=== PATIENT | female | born 1990 | race Caucasian/White ===

== ENCOUNTER 2018-10-28 10:17 | Emergency (ER) | payer BC, OTHER ==
[2018-10-28] MEDS ORDERED: Ibuprofen TAB* 600 MG PO ONE (10:32)
--- NOTE | 2018-10-28 12:01 | ED ---
Upper Extremity Pain - HPI Summary HPI Summary: Patient is a 27-year-old female presenting to the ED with a crush injury to the right ring finger at work this morning. She states the ring finger got jammed in between a person and a bed. She is endorsing pain to the PIP joint only without radiation of pain. Denies any numbness or tingling. Denies any color or temperature changes. She is able to flex and extend the MCP, but refuses to flex and extend at the PIP or DIP due to pain. She's never injured the hand or the finger in the past. Symptoms are aggravated with movement and better with rest. She has not taken anything [id number] for relief and has not used ice for relief. - History of Current Complaint Chief Complaint: EDExtremityUpper Stated Complaint: LEFT HAND INJURY Time Seen by Provider: 10/28/18 10:27 Hx Obtained From: Patient Onset/Duration: Started Hours Ago Timing: Constant Severity Initially: Moderate Severity Currently: Moderate Pain Location: Finger Character: Aching Aggravating Factor(s): Movement, Lifting, Flexion, Extension Alleviating Factor(s): Rest, Ice Associated Signs & Symptoms: Negative: Swelling, Redness, Bruising Related History: Dominant Hand Right - Risk Factors Non-Orthopedic Risk Factor: Negative DVT Risk Factors: Negative Septic Arthritis Risk Factor: Negative Compartment Syndrome Risk Factors: Pain - Allergies/Home Medications Allergies/Adverse Reactions: Allergies Allergy/AdvReac Type Severity Reaction Status Date / Time No Known Allergies Allergy Verified 10/28/18 10:24 PMH/Surg Hx/FS Hx/Imm Hx Previously Healthy: Yes - Immunization History Hx Pertussis Vaccination: No Immunizations Up to Date: Yes Infectious Disease History: No Infectious Disease History: Denies: Traveled Outside the [place] in Last 30 Days - Social History Alcohol Use: Occasionally Hx Substance Use: No Substance Use Type: Reports: None Hx Tobacco Use: Yes Smoking Status (MU): Heavy Every Day Tobacco Smoker Review of Systems Constitutional: Negative Eyes: Negative Cardiovascular: Negative Respiratory: Negative Genitourinary: Negative Positive: no symptoms reported, see HPI Positive: Arthralgia - right ring finger injury Neurological: Negative All Other Systems Reviewed And Are Negative: Yes Physical Exam Triage Information Reviewed: Yes Vital Signs On Initial Exam: Initial Vitals Temp Pulse Resp BP Pulse Ox 98.2 F 98 17 153/89 99 10/28/18 10:22 10/28/18 10:22 10/28/18 10:22 10/28/18 10:22 10/28/18 10:22 Vital Signs Reviewed: Yes Appearance: Positive: Well-Appearing, Well-Nourished Skin: Positive: Warm, Skin Color Reflects Adequate Perfusion Head/Face: Positive: Normal Head/Face Inspection Eyes: Positive: Conjunctiva Clear Neck: Positive: Supple, Nontender, No Lymphadenopathy Respiratory/Lung Sounds: Positive: Clear to Auscultation, Breath Sounds Present Cardiovascular: Positive: RRR, Pulses are Symmetrical in both Upper and Lower Extremities Musculoskeletal: Positive: Pain @ - right ring finger Neurological: Positive: Alert, Oriented to Person Place, Time, Speech Normal Psychiatric: Positive: Normal, Affect/Mood Appropriate AVPU Assessment: Alert Diagnostics - Vital Signs Vital Signs Temp Pulse Resp BP Pulse Ox 10/28/18 10:22 98.2 F 98 17 153/89 99 - Laboratory Lab Statement: Any lab studies that have been ordered have been reviewed, and results considered in the medical decision making process. Course/Dx - Course Course Of Treatment: X-ray obtained which shows a questionable crush injury at the volar plate at the distal phalanx of the left ring finger. Splint applied. She will keep splint applied until symptoms resolve. As this is not over the area of concern, this is likely old or not fractured. Pain to the PIP joint shows no signs of trauma or evidence of fracture. - Diagnoses Provider Diagnoses: Finger injury Discharge - Sign-Out/Discharge Documenting (check all that apply): Patient Departure Patient Received Moderate/Deep Sedation with Procedure: No - Discharge Plan Condition: Stable Disposition: HOME Patient Education Materials: Finger Sprain (ED) Forms: *Work Release Referrals: No Primary Care Phys,NOPCP [Primary Care Provider] - Additional Instructions: Keep the splint applied as needed for any discomfort ibuprofen 600 mg 3 times daily - Billing Disposition and Condition Condition: STABLE Disposition: Home
[2018-10-28 12:09] VITALS: BP 124/83
== END 2018-10-28 12:08 | disposition home or self-care (01) ==
LOC: ED 10:17
DX: S69.91XA Unspecified injury of right wrist, hand and finger(s), initial encounter (principal); W23.0XXA Caught, crushed, jammed, or pinched between moving objects, initial encounter; Y99.0 Civilian activity done for income or pay; F17.210 Nicotine dependence, cigarettes, uncomplicated
CPT/HCPCS: 73140; 99282

== ENCOUNTER 2019-08-01 13:39 | Emergency (ER) | payer SELFPAY ==
[2019-08-01 14:06] VITALS: BP 148/87
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
== END 2019-08-01 15:33 | disposition home or self-care (01) ==
LOC: UCCORT 13:39
DX: S16.1XXA Strain of muscle, fascia and tendon at neck level, initial encounter (principal); F17.290 Nicotine dependence, other tobacco product, uncomplicated; Z91.018 Allergy to other foods; V89.2XXA Person injured in unspecified motor-vehicle accident, traffic, initial encounter; Y92.9 Unspecified place or not applicable
CPT/HCPCS: 72125; 84702; 99212; G0463